=== PATIENT | male | born 1995 | race Caucasian/White ===

== ENCOUNTER 2018-06-11 10:00 | Outpatient (RCR) | payer OTHER, SELFPAY ==
--- NOTE | 2018-05-27 14:23 | HP.PTEVAL_ITS ---
Patient's Visit Information DANA CHRISTIANSON is a 22 year old M referred to Physical Therapy by Aminta Liu with a diagnosis of Orthotics. Date of Evaluation: 05/27/18 Physical Therapist: Yoly Hill - Visit Plan Frequency: 1x/Week Duration: 3 Weeks Plan: Orthotics - Subjective Subjective: Last pair of orthotics was 2014- worked well no problems- wears them in his work boots. Finds that he has a hard time fitting them in his shoes. Patient reports that he has very flat feet- he had pain in the ankle before but now its the ball of his foot. The pain is mostly when he is on his feet and walking. Worst: 7/10 Agg: being on his feet. Best: 0/10 Eases: rest. The pain goes away overnight- feels better in the AM. Works [employer]- 6 days a week and during school is 4 days a week. In college at [employer] currently. Is either in work boots or nike tennis shoes. more active in the winter but at this point not as active working more. PMHX: none Meds: none. - Objective Posture: good throughout. Gait: significant pes planus with eversion of the foot in stance phase. SLS: pes planus- can perform for 30 seconds with increased muscle activation. HR/TR: able. ROM: WNL. Strength: WNL. Flex: Gastroc: severe, Soleus: severe - Goals Goal 1:: Patient will verbalize understanding of wear pattern for orthotics Goal Time Frame: 4-6 Weeks - Rehabilitation Potential Physical Therapy Diagnosis: Patient presents with significant pes planus leading to increased pain with ADL's. Rehabilitation Potential: Fair - Anticipated Interventions Comment: orthotics Thank you for the opportunity to evaluate your patient. For Medicare and Medicare HMO plans, please review the plan of care and approve it. It will need to be FAXED BACK to us at [phone] for Medicare purposes. Please let me know if there are questions or concerns regarding this plan of care. Physician Signature: Date:
--- NOTE | 2018-08-08 09:46 | HP.PT.NRP ---
HP - Discharge Summary (1) - Patient Information DANA CHRISTIANSON was seen in my office for initial evaluation on 05/27/18. The following Plan of Care was established for this patient: Initial Frequency: 1x/Week Initial Duration: 3 Weeks - Anticipated Interventions Comment: orthotics This patient was last seen in our office . Pertinent comments regarding their Physical therapy will appear below: Patient has not attended therapy in over 8 weeks- appropriate for d/c and return to MD for further evaluation as needed. At this point I will be discontinuing this patient from physical therapy. I would be happy to see this patient again in the future if found appropriate by the physician. Thank you! ZINA MorrisT
== END 2018-06-11 19:00 | disposition home or self-care (01) ==
LOC: PT 10:00
PROVIDERS: Family Provider Family Medicine; PCP Family Medicine; Referring Provider Podiatrist; Visit Provider Podiatrist
DX: M76.829 Posterior tibial tendinitis, unspecified leg (principal); M21.40 Flat foot [pes planus] (acquired), unspecified foot; G57.50 Tarsal tunnel syndrome, unspecified lower limb
CPT/HCPCS: 97161; 97760; 97763

== ENCOUNTER 2021-06-02 08:30 | Outpatient (RCR) | payer OTHER, SELFPAY ==
--- NOTE | 2021-05-02 10:19 | HP.PTEVAL_ITS ---
Patient's Visit Information DANA CHRISTIANSON is a 25 year old M referred to Physical Therapy by Dr. Aminta Liu DPM with a diagnosis of B posterior Tibial tendinitis. Date of Evaluation: 04/26/21 Physical Therapist: Dani Llamas DPT - Visit Plan Frequency: 1x/Week Duration: 2 Weeks Plan: Pt. fit for custom orthotics and molds sent today. Pt. to be full fit once orthotics arrive, then DC from PT at that point in time. - Subjective Pt is here today for his initial evaluation with diagnosis of posterior tibial tendinitis. He has had good results with use of orthotics previously. Pt. works on his feet most of the day, he owns his own [employer] business. Pt. reports not being fit for orthotics for ~3 years. His current orthotics have broken down a decent amount he. is having pain at medial ankle/foot. He reports being very flat footed. he mostly wears work boots, but does wear a athletic shoe at times. Pt. reports increased pain throughout the day, with the more time on his feet. Pt. reports similar pain in B feet. He has decreased pain with off loading feet. He tries to stretch, but reports not being super consistent. he denies N/T in either feet. Pt. is hopeful to get feet for custom orthotics to relieve his symptoms allowing for increased tolerance to work. - Pain B longitudinal arches Pain Intensity (Out of 10): 3 Pain Intensity Range: 0, 6 - Objective POSTURE: pt. has pretty flat feet in stance. Increases with SLS, not full navicular drop, but large flat feet positioning. PALPATION: Pt. has tenderness along post tib tendon and longitudinal arches bilaterally. No signs of tarsal tunnel pain. NEURO: Normal sensation and DTR of B Achilles and Patellar tendons. ROM: R foot/ankle: Pt. has normal toe flexion/extension, DF 8 deg, PF 44deg, EVR/INV 18deg ea. L foot/ankle: Normal toe flexion/extension, DF 6 deg, PF 46deg. EVR/INV 16deg/ea. Pt. has normal hip and knee ROM. MMT: Pt. has 5/5 strength throughout ankle/knee musculature. R Hip: flexion 5/5, abd 5-/5, ext 5/5. L hip- flexion 5/5, abd 5-/5, ext 5/5. GAIT: Pt. has normal gait pattern, but has increased pronation on already pes planus foot. Pt. has increased rearfoot valgus noted bilaterally during stance phase. - Balance/Special Test Scores Lower Extremity Functional Score: 80 - Goals Goal 1:: STG: Pt. to be fitting for custom orthotics. Goal Time Frame: 1 Week Goal 2:: STG: Pt. to be educated in wearing program increase tolerance to use of orthotics. Goal Time Frame: 1 Week - Rehabilitation Potential Physical Therapy Diagnosis: Pt. has signs and symptoms consistent with flexion B posterior Tibial tendinitis. Pt. has very flat feet with increased rearfoot valgus. Pt. would benefit from orthotic to allow for improved positioning of B feet. This will hopefully allow for increased tolerance to standing and walking. Rehabilitation Potential: Excellent - Anticipated Interventions Patient/Client Instruction: Educate patient on: Condition, Plan of Care, Risk Factors, Benefits of Fitness Program For the Purpose of:: To facilitate caregiver knowledge, To improve self management, To prevent re-injury, To improve ability to perform tasks related to life management, To improve tolerance to ADL's Orthotics: Cast, Shoe insert For the Purpose of:: To decrease pain, To decrease swelling/inflammation, To improve health of tissue, To decrease soft tissue restriction Thank you for the opportunity to evaluate your patient. For Medicare and Medicare HMO plans, please review the plan of care and approve it. It will need to be FAXED BACK to us at [phone] for Medicare purposes. For Medicare only, by signing this I certify the plan of care. Please let me know if there are questions or concerns regarding this plan of care. Physician Signature: Date:
--- NOTE | 2021-06-22 08:57 | HP.PTDCSUM ---
It has been my pleasure to treat DANA CHRISTIANSON referred by Dr. Aminta Liu DPM, with the diagnosis of B posterior Tibial tendinitis for a total of 2 visit(s). Discharge Date: Please see the following information for a summary of their discharge status. Subjective: Pt. here today for fitting for his orthotics. Pt. reports no major changes. He did get new shoes. He brought them in with him today. B longitudinal arches Pain Intensity (Out of 10): 0 % Improvement: 100 Objective/Function: No issues noted with orthotics today. Pt. reports good fit with walking. Pt. will be DC this date. Goal 1:: STG: Pt. to be fitting for custom orthotics. Goal Progress: Goal Met Goal 2:: STG: Pt. to be educated in wearing program increase tolerance to use of orthotics. Goal Progress: Goal Met Plan: Pt. fit for custom orthotics and molds sent today. Pt. to be full fit once orthotics arrive, then DC from PT at that point in time. If there are questions or concerns regarding this patient's physical therapy, please feel free to call me at [phone]. Thank you for the referral of this patient. Sincerely, Dani Llamas DPT Balance/Gait/Functional tests - Balance/Special Test Scores Lower Extremity Functional Score: 80
== END 2021-06-02 19:00 | disposition home or self-care (01) ==
LOC: PT 08:30
PROVIDERS: PCP Family Medicine; Referring Provider Podiatrist; Visit Provider Podiatrist
DX: M76.829 Posterior tibial tendinitis, unspecified leg (principal)
CPT/HCPCS: 97161; 97760; 97763

== ENCOUNTER 2024-10-30 07:00 | Outpatient (RCR) | payer OTHER, SELFPAY ==
--- NOTE | 2024-09-21 15:56 | HP.PTEVAL ---
Patient's Visit Information Visit Information Visit Information: DANA CHRISTIANSON is a 29 year old M referred to Physical Therapy by Dr. Aminta Liu DPM with a diagnosis of PT tendonitis. Date of Evaluation: 09/21/24 Physical Therapist: Dana Dupree PT, Cert MDT, OCS Visit Plan Frequency: 1 visit Plan: Return to 1 visit to provide custom orthotics to ensure proper fitting Subjective Subjective: This 29 y/o male presents to physical therapy with Posterior tibial tendonitis . Patient stand and walk all day which caused pain PPT . Patient seen DR recommended orthotics .No imaging. Patient has old orthotics which warned . Patient denies paresthesia/tingling. Sleeping good. Patient no ankle injury . Patient needs orthotics to decrease pain . Patient goals to have new orthotics. SOCIAL: VOCATION: [employer] Objective Objective: POSTURE: pes planus ,calcaneal valgus GAIT: reciprocal pattern PALAPTION: unremarkable NEURO: denies paresthesia/tingling AROM: dorsiflexion 0 degrees ,plantar flexion 65 degrees ,inversion 35 degrees ,eversion 10 degrees MMT: ankle stabilizers 5/5 Goals Goal 1:: Recommended custom made orthotics with appropriate fitting Goal Time Frame: 4-6 Weeks Rehabilitation Potential Physical Therapy Diagnosis: Patient has severe pes planus with calcaneal valgus causes PT tendonitis thus benefit from custom orthotics Rehabilitation Potential: Fair Anticipated Interventions Patient/Client Instruction: Educate patient on: Condition and Plan of Care For the Purpose of:: Other Other: orthotics Text: Thank you for the opportunity to evaluate your patient. For Medicare and Medicare HMO plans, please review the plan of care and approve it. It will need to be FAXED BACK to us at [phone] for Medicare purposes. For Medicare only, by signing this I certify the plan of care. Please let me know if there are questions or concerns regarding this plan of care. Physician Signature: Date:
--- NOTE | 2024-10-30 07:35 | HP.PTDCSUM ---
Discharge Summary D/C summary: It has been my pleasure to treat DANA CHRISTIANSON referred by Dr. Aminta Liu DPM, with the diagnosis of PT tendonitis for a total of 2 visit(s). Discharge Date: Please see the following information for a summary of their discharge status. Subjective Subjective: NO c/os Objective Objective/Function: PROVIDED ORTHOTICS TO ENSURE PROPER FITTING BUT NO ADJUSTMENTS WHERE MADE ,PATIENT JUST WANTED TO KEEP THE WAY THERE WHERE Goals Goal 1:: Recommended custom made orthotics with appropriate fitting Goal Progress: Goal Met Plan Plan: D/C D/C Information d/c sentence: If there are questions or concerns regarding this patient's physical therapy, please feel free to call me at [phone]. Thank you for the referral of this patient. Sincerely, Dana Dupree, PT, Cert MDT, OCS
== END 2024-10-30 19:00 | disposition home or self-care (01) ==
LOC: PT 07:00
PROVIDERS: PCP Family Medicine; Referring Provider Podiatrist; Visit Provider Podiatrist
DX: M76.829 Posterior tibial tendinitis, unspecified leg (principal)
CPT/HCPCS: 97161; 97760; 97763